=== PATIENT | female | born 1990 | race Caucasian/White ===

== ENCOUNTER → 2018-12-26 13:54 | Outpatient (CLI) | payer BC, SELFPAY ==
[2017-08-13 11:15] VITALS: BMI 21.7
[2019-01-01 12:35] LABS: HPV Reflexed? NOT INDICATED
== END ==
PROVIDERS: Visit Provider Obstetrics & Gynecology
DX: Z12.4 Encounter for screening for malignant neoplasm of cervix (principal)
CPT/HCPCS: 88175; G0145

== ENCOUNTER → 2021-08-30 | Outpatient (CLI) | payer OTHER, SELFPAY ==
[2021-09-05 15:23] LABS: HPV APTIMA, High Risk Negative (Negative)
== END | disposition home or self-care (01) ==
LOC: LABSPEC 16:49
PROVIDERS: Visit Provider Student in an Organized Health Care Education/Training Program
DX: Z12.4 Encounter for screening for malignant neoplasm of cervix (principal)
CPT/HCPCS: 87624; 88175; G0145

== ENCOUNTER → 2022-03-22 | Outpatient (CLI) | payer OTHER, SELFPAY ==
--- NOTE | 2022-03-22 08:06 | RAD_ITS ---
EXAM: XR CERVICAL SPINE, 4 OR 5 VIEWS CLINICAL INDICATION: CERVICALGIA TECHNIQUE: Frontal, lateral and bilateral oblique views of the cervical spine. This report was created using [employer] report generation technology. COMPARISON: None. FINDINGS: VERTEBRAE: Loss of the normal cervical lordosis which may be due to muscle spasm or head positioning. Preserved vertebral body height. No acute fracture. No spondylolisthesis. No significant facet arthropathy. DISC SPACES: Normal. Disc spaces are maintained. SOFT TISSUES: Normal. No prevertebral soft tissue widening. LUNG APICES: Clear. RAD/Cerv Spine 4 or 5 Views IMPRESSION: No acute bone or joint abnormality. Electronically Signed: Lawson Subramanian MD at 8:54 EST ,
== END | disposition home or self-care (01) ==
LOC: RAD 07:59
PROVIDERS: PCP Nurse Practitioner Adult Health
DX: M54.2 Cervicalgia (principal)
CPT/HCPCS: 72050

== ENCOUNTER 2022-10-09 07:24 | Day surgery (SDC) | payer OTHER, SELFPAY ==
[2022-10-03 11:37] LABS: Hematocrit 43.8 % (37-47); Hemoglobin 14.2 g/dL (12.0-15.0); Mean Corp Hgb Conc 32.4 g/dL (32-36); Mean Corpuscular Hgb 28.9 pg (27.0-32.0); Mean Corpuscular Volume 89.2 fL (81-99); Mean Platelet Vol. 10.9 fl (6.2-12.0); Platelet Count 295 K/mm3 (150-450); RBC Distribution Width SD 42.3 fl (35.1-43.9); Red Blood Count 4.91 M/mm3 (4.2-5.4)
--- NOTE | 2022-10-09 07:32 | PCM.HP.BLA ---
History and Physical Date of Admission: 10/09/22 Chief complaint: Desires permanent sterilization History present illness: 32-year-old arrives for scheduled laparoscopic tubal ligation. No medical changes since last seen. All questions answered and consent signed. Obstetric history: G1, P1 history of 1 vaginal delivery Past medical history: Anxiety depression Medications: Buspirone, venlafaxine Allergies: Mushrooms Past surgical history: None Social history: Former smoker, denies alcohol or drug use Family history: Denies a history of DVT or PE Review of systems: Besides above pertinent positives a full review of systems was performed and found to be negative Physical exam: Vitals: Pending General: Normal-appearing no acute distress HEENT: Normocephalic/atraumatic no cervical lymphadenopathy Cardiac/respiratory: No use of accessory muscles, nonlabored breathing Abdomen: Soft, nontender, nondistended Extremities: No peripheral edema normal peripheral pulses Psych: Normal affect and remainder nonpressured speech Assessment and plan: 32-year-old arrives for scheduled laparoscopic tubal ligation. Patient understands risk of the procedure include but are not limited to visceral vascular injury, prolonged hospitalization, blood loss and need for transfusion, reoperation. Patient understands tubal ligation is permanent procedure. Patient states understanding and wished to proceed. All questions were answered and consent was signed.
[2022-10-09 07:43] LABS: Internal QC Validated? YES +Cl - CLEAR BKGD; Pregnancy, Urine Negative Negative
[2022-10-09 07:52] VITALS: BP 113/72; PULSE 59; RESP 16; TEMP 36.2; O2SAT 100; BMI 22.1
[2022-10-09] MEDS: Lactated Ringers 1,000 ML 120 ML IV (07:52)
--- NOTE | 2022-10-09 09:00 | FALS_PTH ---
PATIENT: JANET BISWAS LOC: [facility] [place] U#:[id number] AGE/SX: 32/F ROOM: RE10/09/[address]: Dr. Wolf Katz MD : 1990 BED: DIS: 10/09/2022 SPEC #: [id number] RECD: 10/09/22 10:56 STATUS: COLVIS MAUREEN #: [id number] SHERICE: 10/09/22 09:[address]: Wolf Katz DEPT: SURGICAL PATHOLOGY RECD BY: Rox Mauro ENTERED: 10/09/22 12:03 SP TYPE: FALL TUBES OTHR DR: Harini Ely, HAYDEE Tissues: Fallopian tube Procedures: Surgery Specimen Level II HEADER OPERATION: Laparoscopic salpingectomy PRE-OP DIAGNOSIS: Sterilization TISSUE SUBMITTED: Bilateral fallopian tubes MICROSCOPIC DIAGNOSIS Bilateral fallopian tubes, salpingectomy: Bilateral fallopian tubes, no pathologic diagnosis. VIGNESH:dk 10/10/2022 MICROSCOPIC DESCRIPTION Slides are reviewed. GROSS DESCRIPTION Received in fixative is one container labeled with the patient's name and designated bilateral fallopian tubes. The specimen consists of bilateral fallopian tubes including fimbrial ends each measuring 6.0 cm in length and 0.7 cm in diameter. The fallopian tubes are not identified as right or left. Sections reveal unremarkable cut surfaces. Gaming Surveillance Observer sections are submitted in two cassettes with each cassette containing one fallopian tube. / SJ:dk 10/09/2022 TC:4 [facility]: [id number] x2
--- NOTE | 2022-10-09 09:25 | DCINST_ITS ---
Discharge Instructions Diet Discharge Diet: No restrictions Activity Discharge Activity: Return to Normal Activity, May Drive, May Shower and - (No tub baths for 2 weeks) May resume sexual activity in: 4-6 weeks Lifting Restrictions: No lifting over 25 pounds for 2 to 3 weeks Dressing / Incision Call your doctor if your incision/area has: Continuous Slow Oozing and Foul Smelling Discharge Call your doctor if you observe: Fever of 101 or Higher, Shortness of breath and Chest pain Follow Up Care Please Follow Up With: Wolf Katz MD When: 2 weeks postoperatively Test Results: Test results from this visit will be discussed in further detail at your follow- up appointment, if applicable. Discharge Plan Admission Attending Provider: Wolf Katz Primary Care Provider: Harini Ely NP Discharge Orders/Prescriptions Prescriptions: No Action L.acidoph, paracasei,B. lactis 1 EACH capsule 1 ea PO DAILY multivitamin Tablet 1 tab PO DAILY venlafaxine 37.5 mg capsule,extended release 24hr 75 mg PO DAILY Label Comments: TAKE 1 CAPSULE BY MOUTH EVERY DAY buspirone 7.5 mg Tablet 7.5 mg PO DAILY Referrals / Follow Up: Harini Ely NP, COOLING ROOM ATTENDANT-C [Primary Care Provider] - Disposition Disposition (needs filled in before D/C Order can be placed): Home, Self Care
--- NOTE | 2022-10-09 09:26 | PCM.OPRPT ---
Report of Operation Date of Procedure: 10/09/22 Pre-Operative Diagnosis: Desires permanent sterilization Post-Operative Diagnosis: Desires permanent sterilization Surgery/Procedure Performed:: Laparoscopic bilateral salpingectomy Description of Surgical Findings:: Surgeon: Wolf Katz MD Anesthesia: General EBL: 5 cc Urine output: 50 cc IV fluids: 500 cc Complications: None Specimen: Bilateral fallopian tubes Findings: Normal uterus, tubes, and ovaries Consent: Patient desires permanent sterilization elects for laparoscopic bilateral salpingectomy. Patient understands risk of the procedure include but are not limited to visceral or vascular injury, prolonged hospitalization, blood loss need for transfusion, reoperation. Patient state understanding wish to proceed. All questions were answered and consent was signed. Procedure: Patient brought back to the OR where general anesthesia was found to be adequate. Patient was prepared and draped in a dorsolithotomy position with yellowfin stirrups. A weighted speculum was placed in the posterior aspect of the vagina and cervical dilators were used to dilate cervix. Uterine manipulator was placed. Varies needle was inserted at the umbilicus and water safety test was passed. Abdomen was insufflated. 5 mm supraumbilical midline trocar was inserted under direct visualization. Laparoscope was inserted and above findings were noted. Left lower quadrant 5 mm trocar was inserted under direct visualization. Right lower quadrant 8 mm trocar was inserted under direct visualization. Using an atraumatic grasper and a LigaSure device the left fallopian tube was identified to the fimbria and the mesosalpinx was cut and cauterized with LigaSure device, the left fallopian tube was transected at the cornua, removed from the abdominal cavity and sent to pathology. Good hemostasis was noted. The right fallopian tube was identified to the fimbria and the mesosalpinx was cut and cauterized with the LigaSure device, right fallopian tube was transected at the cornua, right fallopian tube was removed from the abdominal cavity and sent to pathology. Good hemostasis was noted. Good hemostasis was noted bilaterally. Abdomen was desufflated and trocars removed under direct visualization, good hemostasis was noted. Laparoscopic port sites were closed in a subcutaneous fashion and skin glue was placed over the incisions. Uterine manipulator was removed. Good hemostasis was noted. All counts were correct x2. Patient tolerated procedure well and was brought to recovery in stable condition.
[2022-10-09 09:31] VITALS: BP 106/75; BP 113/72; PULSE 76; RESP 18; TEMP 36.3; O2SAT 97
[2022-10-09 09:45] VITALS: BP 107/68; BP 113/72; PULSE 65; RESP 18; O2SAT 100
[2022-10-09 09:55] VITALS: BP 113/72; BP 99/63; PULSE 62; RESP 18; TEMP 36.2; O2SAT 100
[2022-10-09] MEDS: Acetaminophen 500 MG Tablet 1000 MG PO (10:18)
[2022-10-09 11:03] VITALS: BP 113/72; BP 95/64; PULSE 55; RESP 16; TEMP 36; O2SAT 100
== END 2022-10-09 11:19 | disposition home or self-care (01) ==
LOC: SDC 07:25 → AC 07:26
PROVIDERS: Anesthesiology; PCP Nurse Practitioner Adult Health; Referring Provider Obstetrics & Gynecology; Visit Provider Obstetrics & Gynecology
PROC: (CPT 58661; principal; 2022-10-09 08:45)
DX: Z30.2 Encounter for sterilization (principal); E78.00 Pure hypercholesterolemia, unspecified; F32.A Depression, unspecified; F41.9 Anxiety disorder, unspecified; Z79.899 Other long term (current) drug therapy; Z87.891 Personal history of nicotine dependence
CPT/HCPCS: 58661; 00840; 36415; 81025; 85027; 86850; 86900; 86901; 88302; J7120; J2405

== ENCOUNTER → 2023-01-23 | Outpatient (CLI) | payer OTHER, SELFPAY ==
--- NOTE | 2023-01-23 12:56 | US_ITS ---
STUDY: THYROID ULTRASOUND REASON FOR EXAM: Female, 32 years old. THYROIDITIS TECHNIQUE: Ultrasound evaluation of the thyroid was performed with real-time and static bernal-scale imaging. COMPARISON: None. FINDINGS: RIGHT LOBE: The right lobe of the thyroid gland measures 3.7 cm x 1.17 x 1.3 cm. There is a homogeneous echotexture. There are no demonstrated solid, cystic or complex lesions. LEFT LOBE: The left lobe of the thyroid gland measures 3.9 cm x 1.3 cm x 1.3 cm. There is a homogeneous echotexture. There are no demonstrated solid, cystic or complex lesions. ISTHMUS: The isthmus measures 1.9 mm. The regional lymph nodes are normal. US/Thyroid IMPRESSION: Normal ultrasound examination of the thyroid. Electronically Signed: Bib Hall MD at 14:25 EDT ,
== END | disposition home or self-care (01) ==
LOC: US 12:55
PROVIDERS: PCP Nurse Practitioner Adult Health; Referring Provider Nurse Practitioner Family; Visit Provider Nurse Practitioner Family
DX: E06.9 Thyroiditis, unspecified (principal)
CPT/HCPCS: 76536

== ENCOUNTER → 2023-11-09 | Outpatient (CLI) | payer OTHER, SELFPAY ==
[2023-11-09 12:15] LABS: Erythrocyte Sedimentation Rate 4 mm/hr (0-30)
[2023-11-09 12:25] LABS: Absolute Lymphocyte Count 1.63 X10^3/uL (0.83-4.51); Absolute Neutrophil Count 3.3 X10^3/uL (2.0-7.7); Basophil# 0.05 X10^3/uL; Basophil% 0.9 % (0-1); Eosinophil# 0.17 X10^3/uL; Eosinophils% 3.1 % (0-5); Hematocrit 43.8 % (37-47); Lymphocyte # 1.63 X10^3/ul (0.83-4.51); Lymphocyte % 29.7 % (19-41); Mean Corpuscular Hgb 28.3 pg (27.0-32.0); Mean Corpuscular Volume 88.5 fL (81-99); Mean Platelet Vol. 11.2 fl (6.2-12.0); Monocyte# 0.37 X10^3/uL; Monocyte% 6.8 % (0-10); NRBC Flagged by Analyzer 0 % (0-5); Neutrophil # 3.25 X10^3/uL (2.7-7.7); Neutrophil % 59.3 % (47-70); Platelet Count 272 K/mm3 (150-450); RBC Distribution Width SD 42.2 fl (35.1-43.9); Red Blood Count 4.95 M/mm3 (4.2-5.4); White Blood Count 5.5 K/mm3 (4.4-11.0)
[2023-11-09 12:59] LABS: ALB/GLOB Ratio 1.1 RATIO (0.9-2.4); AST(SGOT) 29 U/L (15-37); Alanine Aminotransfer ALT/SGPT 53 U/L (13-56); Albumin, Serum 3.9 g/dL (3.2-5.0); Alkaline Phosphatase 63 U/L (45-117); Anion Gap 5 (5-15); BUN 10 mg/dL (7-18); BUN/Creat Ratio 12.8 RATIO (10-20); Calcium,Total 9.3 mg/dL (8.5-10.1); Chloride 108 mmol/L (98-107); Creatinine, Serum 0.78 mg/dL (0.55-1.02); EST Glomerular Filtration Rate 89 mL/min (>60); Est Glom Filt Rate - Afr Amer 108 mL/min (>60); Globulin 3.4 g/dL (2.2-4.2); Glucose 85 mg/dL (74-106); LDH 221 U/L (84-246); Potassium 4.5 mmol/L (3.5-5.1); Protein, Total 7.3 g/dL (6.4-8.2); Sodium Level 138 mmol/L (136-145)
[2023-11-12 15:08] LABS: Anti-Centromere B Ab <0.2 AI (0.0-0.9); Anti-Chromatin <0.2 AI (0.0-0.9); Anti-Jo <0.2 AI (0.0-0.9); Anti-Scleroderma-70 AB <0.2 AI (0.0-0.9); Anti-dsDNA Ab <1 IU/mL (0-9); RNP Ab <0.2 AI (0.0-0.9); SJOGREN'S Anti-SS-A test < 0.2 AI (0.0-0.9); SJOGREN'S Anti-SS-B test < 0.2 AI (0.0-0.9); Smith Ab <0.2 AI (0.0-0.9)
[2023-11-13 16:10] LABS: ACCA 6 units (0-90); ALCA 12 units (0-60); AMCA 24 units (0-100); Cytoplasmic Ab (C-ANCA) <1:20 titer (Neg:<1:20); Endomysial Antibody IgA Negative (Negative); Immunoglobulin A 95 mg/dL (87-352); Perinuclear Ab (P-ANCA) <1:20 titer (Neg:<1:20); gASCA 10 units (0-50); t-Transglutaminase IgA <2 U/mL (0-3)
== END | disposition home or self-care (01) ==
LOC: LAB 11:17
PROVIDERS: PCP Nurse Practitioner Adult Health; Referring Provider Internal Medicine Gastroenterology; Visit Provider Internal Medicine Gastroenterology
DX: K59.00 Constipation, unspecified (principal)
CPT/HCPCS: 36415; 80053; 82784; 83516; 83615; 85025; 85652; 86036; 86140; 86225; 86235; 86255; 86256; 86671

== ENCOUNTER 2024-01-01 08:21 | Outpatient (CLI) | payer OTHER, SELFPAY ==
--- NOTE | 2024-01-01 08:24 | US_ITS ---
STUDY: ABDOMINAL ULTRASOUND - RIGHT UPPER QUADRANT; ELASTOGRAPHY REASON FOR VISIT: Female, 33 years old. Fatty liver. Abnormal liver enzymes. TECHNIQUE: Ultrasound evaluation of the right upper quadrant was performed with real-time and static bernal-scale imaging. Point quantification shear wave elastography was performed (Regen). TECHNICAL QUALITY: Limited. Examination limited by bowel gas. COMPARISON: None. FINDINGS: Liver: The liver measures 15.1 cm. There is normal echogenicity of the liver. The bile ducts are within normal limits. There is hepatic color flow. The direction of portal flow is hepatopetal. There is no demonstrated mass lesion. Median liver stiffness measured 6.8 kPa. Gallbladder: Normal distended gallbladder. The gallbladder wall measures 2.0 mm. There is a negative sonographic Quiroz''s sign. There is no pericholecystic fluid. There are no gallstones. Common Bile Duct (C.B.D.): The common bile duct measures 3.4 mm. Pancreas: There is normal echogenicity of the visualized pancreas. There is no demonstrated pancreatic mass or cyst. Right Kidney: Normal size of the right kidney. The right kidney measures 8.1 cm x 4 cm x 4 cm. Normal renal cortex. The right cortex measures 1.1 cm. There is no demonstrated renal mass or cyst. There is no right hydronephrosis. US/ABD Limited w/ Elastography IMPRESSION: 1. Liver stiffness measures 6.8 kPa compatible with F2-F3 (Mild to moderate liver fibrosis) Metavir score. Electronically Signed: Bib Hall MD at 14:22 EDT ,
== END 2024-01-01 23:59 | disposition home or self-care (01) ==
LOC: US 08:23
PROVIDERS: Referring Provider Student in an Organized Health Care Education/Training Program; Visit Provider Student in an Organized Health Care Education/Training Program
DX: K76.0 Fatty (change of) liver, not elsewhere classified (principal)
CPT/HCPCS: 76705; 76981

== ENCOUNTER 2024-01-11 10:44 | Day surgery (SDC) | payer OTHER, SELFPAY ==
[2024-01-11] VITALS (9 sets, daily range): BP systolic 91–101; BP diastolic 49–70; PULSE 66–77; RESP 16; TEMP 36.1–36.4; O2SAT 98–100; BMI 24.3
[2024-01-11] MEDS: Lactated Ringers 1,000 ML 15 ML IV (11:25)
--- NOTE | 2024-01-11 11:41 | PCM.PRE.AN2 ---
ASA Classification* ASA Classification ASA Classification: 2 Assessment & Plan Anesthesia* Anesthesia Assessment Anesthesia Assessment: Discussed sedation and/or anesthesia options, risks, benefits, and alternatives with patient/parents/legal guardian/POA. Questions invited. The patient/parents/legal guardian/POA seems to understand and agrees to proceed with anesthesia plan. Reviewed the physical assessment, medical history, allergy history and patient home medications list prior to surgery/procedure/anesthetic and documented any changes. Performed airway and anesthesia risk assessments. Anesthesia Type Anesthesia Type: MAC Anesthesia Focused Assessment* Temperature: 97.6 F Pulse Rate: 70 Blood Pressure: 100/68 Respiratory Rate: 16 Pulse Ox: 100 Airway Assessment Mouth opens: >3 cm Mallampati Score: II Focused Labs Anesthesia Preop lab: CBC WBC 5.5 K/mm3 (4.4-11.0) 11/09/23 11:23 RBC 4.95 M/mm3 (4.2-5.4) 11/09/23 11:23 Hgb 14.0 g/dL (12.0-15.0) 11/09/23 11:23 Hct 43.8 % (37-47) 11/09/23 11:23 Plt Count 272 K/mm3 (150-450) 11/09/23 11:23 CHEMISTRY Potassium 4.5 mmol/L (3.5-5.1) 11/09/23 11:23 Sodium 138 mmol/L (136-145) 11/09/23 11:23 BUN 10 mg/dL (7-18) 11/09/23 11:23 Creatinine 0.78 mg/dL (0.55-1.02) 11/09/23 11:23 Glucose 85 mg/dL (74-106) 11/09/23 11:23 POC Glucose 73 mg/dL (70-110) 06/16/15 07:55 COAG HCG, Quant 54594 mIU/mL (<9 non-preg) H 02/10/15 10:50 Urine Test Negative Negative 10/09/22 07:35 Pre-Assessment Diagnosis/Proposed Procedure Planned Operative Procedure(s): CSCOPE Anesthesia History Anesthesia History - corporate travel expert: Anesthesia History - corporate travel expert Hx Hospitalization No 01/09/24 15:38 Any Problems With Anesthesia No 01/09/24 15:38 Cholinesterase deficiency No 01/09/24 15:38 You/Your Family Experience No 01/09/24 15:38 fever (hyperthermia) with Relationship Recent Exposure to Contagious No 01/11/24 11:22 Disease Does patient have nerve No 01/09/24 15:38 stimulator Patient instructed to have device shut off --Does patient have Pacemaker No 01/11/24 11:22 or ICD? When Was Last Pacemaker Check QUESTION #4 FULL TEXT: You/Your Family Experience fever (hyperthermia) with Anesthesia Last Oral Intake Last Oral intake: Last Oral Intake NPO since 06:30 01/11/24 11:22 Meds taken in AM with sips of No 01/11/24 11:22 water? Meds patient instructed to take am of surgery PONV PONV - corporate travel expert: PONV - corporate travel expert Female Yes 01/09/24 15:38 HX of Motion Sickness No 01/09/24 15:38 HX of N/V After Surgery No 01/09/24 15:38 Non-Smoker Yes 01/09/24 15:38 Duration of Surgery greater No 01/09/24 15:38 than 60 minutes Number of Risk Factors 2 01/09/24 15:38 PONV Score Moderate Risk 01/09/24 15:38 Height & Weight Height & Weight: Anesthesia: Height & Weight Height 5 ft 5 in 01/11/24 11:22 Weight: 66.5 kg 01/11/24 11:22 Body Mass Index (BMI) 24.3 01/11/24 11:22 Respiratory Assessment Respiratory Assessment - corporate travel expert: Respiratory Tract Infection Hx - corporate travel expert Hx Respiratory Tract Infection No 01/09/24 15:38 STOP Sleep Apnea STOP Sleep Apnea - corporate travel expert: STOP Sleep Apnea - corporate travel expert Hx Hypertension No 01/09/24 15:38 Hx Sleep Apnea No 01/09/24 15:38 CPAP BIPAP Do you snore loudly (louder No 01/09/24 15:38 than talking or can be heard Do you often feel tired/ No 01/09/24 15:38 fatigued/ sleepy during daytime? Has anyone observed you stop No 01/09/24 15:38 breathing during sleep? STOP Results Negative 01/09/24 15:38 QUESTION #5 FULL TEXT : Do you snore loudly (louder than talking or can be heard through closed doors)? Tobacco Use History Tobacco Use History - corporate travel expert: Tobacco Use History - corporate travel expert Tobacco Use Smoking Status Former smoker 01/09/24 15:38 Hx Tobacco Use No 01/09/24 15:38 Years Smoking Packs Smoked per Day Smoking Cessation Date was Yes - quit smoking within 15 01/09/24 15:38 within the last 15 years years Hx Smoking Cessation Date 04/30/14 01/09/24 15:38 Hx Smoking Cessation Counseling Hematologic Medial History Hematologic Hx - corporate travel expert: Hematologic Medical Hx - higher education administrator Hx of Blood Transfusion No 01/09/24 15:38 Hx of Transfusion in last 3 No 01/09/24 15:38 Months Date of Last Transfusion (if within last 3 months) Ever experience any problems No 01/09/24 15:38 with transfusion(s)? Specify any problems Hx of Preganancy in last 3 N/A 01/09/24 15:38 Months Nurse Filling Out Transfusion NBUCHER 01/09/24 15:38 & Questions: Date: 01/09/24 01/09/24 15:38 Time: 15:39 01/09/24 15:38 Patient unable to answer at this time (ie. confused, unrespo /Reproduction History /Reproductive History - corporate travel expert: /Reproductive Hx- corporate travel expert Hx Now Gestational Age (in weeks): EDC: Hx Hx Para Hx Section SAB No 01/09/24 15:38 Active Medications Active Medications: Current Medications Generic Name Dose Route Start Last Admin Trade Name Freq PRN Reason Stop Dose Admin Lactated Ringer's 1,000 mls @ 15 mls/hr 01/11/24 11:30 01/11/24 11:25 IV 15 mls/hr .Q48H JOHN Administration PFSH Medical History Depression Anxiety Alcohol use High cholesterol History of IBS Former smoker Gave to child recently Fatigue Home Medications ?Medication ?Instructions ?Recorded ?Last Taken ?Type L.acidoph, paracasei,B. lactis 10 1 ea PO DAILY 02/10/15 Unknown History billion cell capsule multivitamin 1 tab PO DAILY 10/03/22 Unknown History magnesium aspart,citrate,oxide 400 mg PO .prn 02/19/23 Unknown History Allergy/AdvReac Type Severity Reaction Status Date / Time mushroom Allergy Hives Verified 01/11/24 11:19 Surgical History History of bilateral salpingectomy History of salpingectomy Social History Smoking Status: Former smoker Review of Systems (Anesthesia) ROS Narrative System reviewed and no additional complaints, except as documented.
--- NOTE | 2024-01-11 12:10 | PCM.HP.BLA ---
History and Physical Date of Admission: 01/11/24 Chief Complaint: Back pain Details: JANET BISWAS, is a 33 F who presents to the office today for initial consult. *BGI established pt reports a long history of IBS and states that for about the last year she has been having constipation. Pt reports that if she uses a rectal suppository she will have a bm per week; denies blood in the stool, but states that there is a lot of mucous. Pt reports that bloating and back pain are increasing with the constipation. ROS Const Constitutional: Positive for fatigue; No fever(s) or weight change ENT ENT: No difficulty swallowing Gastro GI: Positive for abdominal pain, bloating, constipation and excessive flatus; No belching, change in bowel habits, change in stool character, coffee ground emesis, cramping, diarrhea, heartburn, difficulty swallowing, feeling full early, incontinent of stools, Vomiting blood/hematemesis, Blood in stool, loose stools, Black,tarry stools, nausea/dyspepsia, pain with swallowing, vomiting or other Musc Musculoskeletal: Positive for joint pain and back pain Skin Skin: No yellowing of the eye or itchy eyes Psych Psychiatric: Positive for anxiety and No depression Endo Endocrine: Positive for fatigue; No weight change Aller/Imm Allergy/Immunologic: No itchy eyes Mark/Lymp Hematologic/Lymphatic: No easy bleeding or easy bruising Exam Const General: cooperative and comfortable Nutritional Appearance: average body habitus and well nourished [facility] Head: normal to inspection Ears: hearing grossly normal bilaterally Nose: external nose normal Face and sinus: normal facial exam Mouth: oral mucosae normal Throat: posterior oropharynx normal Eyes General: appearance normal, both eyes and all related structures Neck Neck: normal visual inspection Chest Chest palpation & inspection: normal inspection of the chest and normal palpation of entire chest wall Resp Effort & Inspection: normal respiratory effort Auscultation: Bilateral: Clear to Auscultation Cardio Palpation: normal PMI Rate: regular rate Rhythm: regular rhythm GI Inspection: normal to inspection Auscultation: normal bowel sounds Percussion: normal to percussion Palpation: no hepatosplenomegaly Skin General: no rashes or lesions noted Neuro General: patient alert Extrem General: normal to inspection Psych Affect: normal affect Assessment and Plan Assessment and Plan (1) Irritable bowel syndrome: (2) Constipation: Status: Acute Plan: 33-year-old with a longstanding history of chronic idiopathic constipation is started since he was a child. As far as she is known she has always had a problem with constipation. May Progressively worse but she does go through periods where her constipation is not as bad and she does get intermittent loose stools. Over the last year she has been experiencing worsening constipation and has been refractory to her normal [id number] remedies. She typically has to do an enema along with magnesium a stool softener and stimulant. She has no eating disorders. She has never had any bowel surgeries. She has no family history of abnormalities with the colon except for second-degree relative with colon cancer. She has never had a formal workup for her chronic idiopathic constipation. I told her differential diagnosis does include slow transit constipation and pelvic floor dysfunction. We will get a sits marker test, CT scan abdomen pelvis, gastric emptying study and biochemical workup for autoimmune disease and inflammatory disease that can contribute to Constipation. Orders: Orders ANCA Today K59.00 - Constipation, unspecified Celiac Disease Profile Today K59.00 - Constipation, unspecified CRP Today K59.00 - Constipation, unspecified Erythrocyte Sed Rate Today K59.00 - Constipation, unspecified LDH Today K59.00 - Constipation, unspecified CBC W/Diff, Automated Today K59.00 - Constipation, unspecified Comprehensive Metabolic Profil Today K59.00 - Constipation, unspecified Abdomen/Pelvis WITH Contrast Today K59.00 - Constipation, unspecified LANDY Comprehensive Panel Today K59.00 - Constipation, unspecified IBD Expanded Profile Today K59.00 - Constipation, unspecified Abdomen Single View 3 Days K59.00 - Constipation, unspecified Abdomen Single View 5 Days K59.00 - Constipation, unspecified I have examined the patient and the H&P has been reviewed. There are no clinical changes since date of exam.
--- NOTE | 2024-01-11 12:48 | OP.CCLET_ITS ---
01/11/2024 No Primary Care Physician Re : Colonoscopy procedure for Yolanda King Dear Care Physician This procedure was performed on Thursday, January 11, 2024. My impressions and recommendations are as follows: Impressions : - Tortuous colon. - Redundant colon. - The examined portion of the ileum was normal. - No specimens collected. Recommendations : - Discharge patient to home. - Resume previous diet. - Continue present medications. - Repeat colonoscopy in 10 years for screening purposes. My findings are described in the full procedure note, which is enclosed. If I can be of further assistance, please feel free to contact me at . Sincerely, Silvino Malik, 01/11/2024 12:47:49 PM This report has been signed electronically.
--- NOTE | 2024-01-11 12:48 | OP.COLON_ITS ---
Patient Name: Yolanda King Procedure Date: 01/11/2024 12:07 PM Date of : 1990 Age: 33 Procedure: Colonoscopy Indications: Abdominal pain in the left lower quadrant, Periumbilical abdominal pain, Abnormal abdominal x-ray of the GI tract Providers: Silvino Malik DO Referring MD: No Primary Care Physician Medicines: Propofol per Anesthesia Patient Profile: This is a 33 year old female. Refer to note in patient chart for documentation of history and physical. Last Colonoscopy: none. The patient's first colonoscopy is today. Complications: No immediate complications. Procedure: Pre-Anesthesia Assessment: - Prior to the procedure, a History and Physical was performed, and patient medications and allergies were reviewed. The patient is competent. The risks and benefits of the procedure and the sedation options and risks were discussed with the patient. All questions were answered and informed consent was obtained. Patient identification and proposed procedure were verified by the physician in the pre-procedure area. Mental Status Examination: alert and oriented. Airway Examination: normal oropharyngeal airway and neck mobility. Respiratory Examination: clear to auscultation. CV Examination: normal. Prophylactic Antibiotics: The patient does not require prophylactic antibiotics. Prior Anticoagulants: The patient has taken no anticoagulant or antiplatelet agents except for NSAID medication. ASA Grade Assessment: II - A patient with mild systemic disease. After reviewing the risks and benefits, the patient was deemed in satisfactory condition to undergo the procedure. The anesthesia plan was to use monitored anesthesia care (MAC). Immediately prior to administration of medications, the patient was re-assessed for adequacy to receive sedatives. The heart rate, respiratory rate, oxygen saturations, blood pressure, adequacy of pulmonary ventilation, and response to care were monitored throughout the procedure. The physical status of the patient was re-assessed after the procedure. After I obtained informed consent, the scope was passed under direct vision. Throughout the procedure, the patient's blood pressure, pulse, and oxygen saturations were monitored continuously. The pediatric colonoscope was introduced through the anus and advanced to the terminal ileum. The colonoscopy was performed without difficulty. The patient tolerated the procedure well. The quality of the bowel preparation was adequate. The terminal ileum, ileocecal valve, appendiceal orifice, and rectum were photographed. Scope In: 12:18:48 PM Scope Withdrawal Time 0 hours 5 minutes 52 seconds Scope Out: 12:43:01 PM Total Procedure Duration Time 0 hours 24 minutes 13 seconds Findings: The perianal and digital rectal examinations were normal. The colon (entire examined portion) was grossly tortuous. The sigmoid colon, hepatic flexure and ascending colon were grossly redundant. The terminal ileum appeared normal. Impression: - Tortuous colon. - Redundant colon. - The examined portion of the ileum was normal. - No specimens collected. Recommendation: - Discharge patient to home. - Resume previous diet. - Continue present medications. - Repeat colonoscopy in 10 years for screening purposes. Procedure Code(s): --- Professional --- 59617, Colonoscopy, flexible; diagnostic, including collection of specimen(s) by brushing or washing, when performed (separate procedure) CPT copyright 2021 [employer]. All rights reserved. The codes documented in this report are preliminary and upon shoe patternmaker review may be revised to meet current compliance requirements. Silvino Malik DO 01/11/2024 12:47:49 PM This report has been signed electronically. Number of Addenda: 0 Note Initiated On: 01/11/2024 12:07 PM
--- NOTE | 2024-01-11 12:50 | PCM.POST.ANE ---
Anesthesia: Postop Eval I Current Vital Signs Temperature: 97 F Pulse Rate: 74 Blood Pressure: 93/49 Respiratory Rate: 16 Pulse Ox: 98 Oxygen Delivery Method: Room Air Assessment Airway patent: Yes Spontaneous unlabored respirations: Yes Mental status: Asleep nausea: No Vomiting: No Anesthesia Complication: No Fluid Hydration Crystalloid volume administer (ml): 600 Total IV fluid infused: 600 Progress Note Anesthesia document: Postop Eval 1 completed: Yes
--- NOTE | 2024-01-11 15:36 | PCM.POSTANE2 ---
Anesthesia Postop Eval I Sum Postop Eval Completion status Anesthesia document: Postop Eval 1 completed: Yes Anesthesia Postop Eval I Summary Anesthesia Postop Eval I Summary: Anesthesia Postop Eval I: Assessment Summary Airway patent Yes 01/11/24 12:51 [email or web address] Spontaneous unlabored Yes 01/11/24 12:51 [email or web address] respirations Mental status Asleep 01/11/24 12:51 [email or web address] nausea No 01/11/24 12:51 [email or web address] Vomiting No 01/11/24 12:51 [email or web address] Anesthesia Postop Eval I: Fluid Summary Crystalloid volume administer 600 01/11/24 12:51 [email or web address] (ml) Colloids volume administered ( ml) Blood Product volume administered (ml) Total IV fluid infused 600 01/11/24 12:51 [email or web address] Anesthesia Postop Eval I: Summary Notes Anesthesia Complication No 01/11/24 12:51 [email or web address] Anesthesia Complication Comment: Post-operative progress note Anesthesia: Postop Eval II Evaluation Mental status: Awake Pain Level: 0 nausea: No Vomiting: No
== END 2024-01-11 13:33 | disposition home or self-care (01) ==
LOC: EN 10:44 → AC 10:46
PROVIDERS: Visit Provider Internal Medicine Gastroenterology
PROC: 0DJD8ZZ Inspection of Lower Intestinal Tract, Via Natural or Artificial Opening Endoscopic (ICD-10-PCS; CPT 45378; principal; 2024-01-11 11:55)
DX: K59.04 Chronic idiopathic constipation (principal); K58.1 Irritable bowel syndrome with constipation; Q43.8 Other specified congenital malformations of intestine; Z87.891 Personal history of nicotine dependence
CPT/HCPCS: 45378; J7120; J2405

== ENCOUNTER → 2024-05-14 | Outpatient (CLI) | payer OTHER, SELFPAY | END | disposition home or self-care (01) | LOC: LABSPEC 10:02 | PROVIDERS: Referring Provider Physician Assistant; Visit Provider Physician Assistant | DX: R30.0 Dysuria (principal); M54.9 Dorsalgia, unspecified | CPT/HCPCS: 87086 ==

== ENCOUNTER → 2024-05-30 | Outpatient (CLI) | payer OTHER, SELFPAY ==
[2024-05-30 12:56] LABS: Absolute Lymphocyte Count 1.56 X10^3/uL (0.83-4.51); Absolute Neutrophil Count 3.2 X10^3/uL (2.0-7.7); Basophil# 0.05 X10^3/uL; Basophil% 0.9 % (0-1); Eosinophil# 0.18 X10^3/uL; Eosinophils% 3.4 % (0-5); Hematocrit 43.4 % (37-47); Hemoglobin 13.6 g/dL (12.0-15.0); Lymphocyte # 1.56 X10^3/ul (0.83-4.51); Lymphocyte % 29.1 % (19-41); Mean Corp Hgb Conc 31.3 g/dL (32-36); Mean Corpuscular Hgb 27.6 pg (27.0-32.0); Mean Corpuscular Volume 88.2 fL (81-99); Mean Platelet Vol. 11.4 fl (6.2-12.0); Monocyte# 0.37 X10^3/uL; Monocyte% 6.9 % (0-10); NRBC Flagged by Analyzer 0 % (0-5); Neutrophil # 3.18 X10^3/uL (2.7-7.7); Neutrophil % 59.1 % (47-70); Platelet Count 292 K/mm3 (150-450); RBC Distribution Width CV 13.2 % (11.6-14.6); Red Blood Count 4.92 M/mm3 (4.2-5.4); White Blood Count 5.4 K/mm3 (4.4-11.0)
[2024-05-30 14:07] LABS: AST(SGOT) 8 U/L (15-37); Alanine Aminotransfer ALT/SGPT 15 U/L (13-56); Albumin, Serum 3.6 g/dL (3.2-5.0); Alkaline Phosphatase 66 U/L (45-117); Anion Gap 7 (5-15); BUN 10 mg/dL (7-18); Calcium,Total 8.8 mg/dL (8.5-10.1); Chloride 107 mmol/L (98-107); Cholesterol 253 mg/dL (200); Creatinine, Serum 0.71 mg/dL (0.55-1.02); EST Glomerular Filtration Rate 99 mL/min (>60); Est Glom Filt Rate - Afr Amer 119 mL/min (>60); Free T3 3.1 pg/mL (2.18-3.98); Globulin 3.5 g/dL (2.2-4.2); Glucose 88 mg/dL (74-106); High Density Lipoprotein 62 mg/dL; Potassium 4.1 mmol/L (3.5-5.1); Protein, Total 7.1 g/dL (6.4-8.2); Sodium Level 139 mmol/L (136-145); T4 Free Direct 1.03 ng/dL (0.76-1.46); Triglycerides 61 mg/dL; Very Low Density Lipoprotein 12 mg/dL (5-40)
== END | disposition home or self-care (01) ==
PROVIDERS: PCP Nurse Practitioner Family; Visit Provider Nurse Practitioner Family
DX: Z00.01 Encounter for general adult medical examination with abnormal findings (principal); R53.83 Other fatigue; Z83.2 Family history of diseases of the blood and blood-forming organs and certain disorders involving the immune mechanism
CPT/HCPCS: 36415; 80053; 80061; 84439; 84443; 84481; 85025

== ENCOUNTER → 2024-08-12 | Outpatient (CLI) | payer OTHER, SELFPAY ==
[2024-08-16 08:27] LABS: HPV Reflexed? YES, CHARGE PATIENT
== END | disposition home or self-care (01) ==
PROVIDERS: PCP Nurse Practitioner Family; Referring Provider Nurse Practitioner Family; Visit Provider Nurse Practitioner Family
DX: Z12.4 Encounter for screening for malignant neoplasm of cervix (principal); N89.8 Other specified noninflammatory disorders of vagina; N39.0 Urinary tract infection, site not specified
CPT/HCPCS: 87086; 87088; 87624; 87661; 88175; G0145